=== PATIENT | male | born 1980 | race Caucasian/White ===

== ENCOUNTER 2018-09-01 21:56 | Emergency (ER) | payer SELFPAY ==
[~2018-09-01] VITALS: Ht 172.7 cm; Wt 91.0 kg
[2018-09-01 22:04] VITALS: BP 130/100
== END 2018-09-01 22:54 | disposition left against medical advice (07) ==
LOC: ER 21:56
DX: Z53.21 Procedure and treatment not carried out due to patient leaving prior to being seen by health care provider (principal)

== ENCOUNTER 2024-02-08 21:49 | Emergency (ER) | payer SELFPAY ==
[~2024-02-08] VITALS: Ht 175.3 cm; Wt 70.0 kg
[2024-02-08] MEDS ORDERED: IBUPROFEN 600MG TABLET PO ONE (22:00)
[2024-02-08] MEDS ORDERED: LIDOCAINE 5% PATCH TOP SCH (22:00)
[2024-02-08 22:04] VITALS: BP 155/95; PULSE 120; RESP 16; TEMP 98.2; O2SAT 98
[2024-02-08] MEDS ORDERED: SODIUM CHLORIDE 0.9% 1,000 ML IV NR (22:15)
[2024-02-09] MEDS ORDERED: IBUPROFEN 600MG TABLET PO NR (02:30)
== END 2024-02-09 07:41 | disposition home or self-care (01) ==
LOC: ER 21:49
DX: S20.212A Contusion of left front wall of thorax, initial encounter (principal); R07.89 Other chest pain; I10 Essential (primary) hypertension; F14.10 Cocaine abuse, uncomplicated; F12.10 Cannabis abuse, uncomplicated; X58.XXXA Exposure to other specified factors, initial encounter; Y93.89 Activity, other specified; Y92.89 Other specified places as the place of occurrence of the external cause; Y99.8 Other external cause status
CPT/HCPCS: 71045; 93005; 99283

== ENCOUNTER 2024-02-20 09:46 | Emergency (ER) | payer SELFPAY ==
[~2024-02-20] VITALS: Ht 167.6 cm; Wt 70.0 kg
[2024-02-20 09:49] VITALS: O2SAT 99
[2024-02-20 10:28] VITALS: BP 125/69; PULSE 132; RESP 23; TEMP 37.22520; O2SAT 96
[2024-02-20] MEDS: SODIUM CHLORIDE 0.9% 1,000 ML IV ONE (10:32)
[2024-02-20 10:41] LABS: BASOPHILS % 0.4 % (0.0-2.0); EOSINOPHILS % 1.7 % (0.0-5.0); HEMATOCRIT. 35.1 % (42.0-52.0); HEMOGLOBIN. 11.4 g/dL (14.0-18.0); LYMPHOCYTES % 47.1 % (20.0-50.0); MEAN CORPUSCULAR HEMOGLOBIN 28.7 pg (28.0-32.0); MEAN CORPUSCULAR HGB CONC 32.4 g/dL (31.0-37.0); MEAN CORPUSCULAR VOLUME 88.5 fL (80.0-94.0); MONOCYTES % 8.9 % (2.0-8.0); NEUTROPHILS % 41.9 % (40.0-76.0); PLATELET 238 x1000/uL (130-400); RED BLOOD CELL COUNT 3.96 mill/uL (4.7-6.1); RED CELL DISTRIBUTION WIDTH 13.6 % (11.6-14.6); WHITE BLOOD COUNT 5.8 x1000/uL (4.5-11.0)
[2024-02-20 10:50] LABS: CHLORIDE 110 mEq/L (98-107); POTASSIUM 3.6 mEq/L (3.5-5.1); SODIUM 144 mEq/L (136-145)
[2024-02-20 10:51] LABS: CALCIUM 8.4 mg/dL (8.7-10.4); CARBON DIOXIDE 24 mEq/L (21-32)
[2024-02-20 10:56] LABS: CREATININE 0.3 mg/dL (0.6-1.3); GLUCOSE 103 mg/dL (70-105)
[2024-02-20 10:57] LABS: ETHANOL BLOOD 282 mg/dL (<10)
[2024-02-20 11:10] LABS: UREA NITROGEN BLOOD < 5 mg/dL (9-23)
== END 2024-02-20 11:24 | disposition left against medical advice (07) ==
LOC: ER 09:46
DX: F10.129 Alcohol abuse with intoxication, unspecified (principal); F14.10 Cocaine abuse, uncomplicated; F12.10 Cannabis abuse, uncomplicated; Y90.8 Blood alcohol level of 240 mg/100 ml or more
CPT/HCPCS: 80048; 80320; 85025; 36415; 93005; 99284; J7030; G0480

== ENCOUNTER 2025-01-25 07:34 | Inpatient (IN) | payer MEDICAID ==
[~2025-01-25] VITALS: Ht 167.6 cm; Wt 72.6 kg
[~2025-01-25 07:34] MED LIST: APIX5TAB PO; DIGO-34 PO; FURO-151 PO; METH-371 PO; METO25TA6 PO
[2025-01-25 07:45] VITALS: O2SAT 100
[2025-01-25 08:40] LABS: BASOPHILS % 0.7 % (0.0-2.0); EOSINOPHILS % 1.6 % (0.0-5.0); HEMATOCRIT. 30.0 % (42.0-52.0); HEMOGLOBIN. 9.6 g/dL (14.0-18.0); LYMPHOCYTES % 40.7 % (20.0-50.0); MEAN PLATELET VOLUME 8.8 fl (7.4-10.4); MONOCYTES % 12.5 % (2.0-8.0); NEUTROPHILS % 44.5 % (40.0-76.0); PLATELET 199 x1000/uL (130-400); RED BLOOD CELL COUNT 3.70 mill/uL (4.7-6.1); RED CELL DISTRIBUTION WIDTH 15.0 % (11.6-14.6)
[2025-01-25] MEDS: DILTIAZEM HCL 60MG TABLET PO ONE (08:45)
[2025-01-25] MEDS: DILTIAZEM HCL 5MG/ML 5ML VIAL IV ONE (08:45)
[2025-01-25] MEDS: ENOXAPARIN 80MG/0.8ML SYR SUBCUT ONE (08:46)
[2025-01-25 08:53] LABS: UREA NITROGEN BLOOD 9 mg/dL (9-23)
[2025-01-25 08:55] LABS: ASPARTATE AMINOTRANSFERASE 31 IU/L (<34); BILIRUBIN DIRECT 1.2 mg/dL (<=3.0); BILIRUBIN TOTAL 1.9 mg/dL (0.1-1.0); PROTEIN TOTAL 6.5 g/dL (6.0-8.3); TROPONIN I HIGH SENSITIVITY 18 ng/L (3.0-53)
[2025-01-25 09:09] LABS: CREATININE 0.4 mg/dL (0.6-1.3)
[2025-01-25 11:29] LABS: TROPONIN I HIGH SENSITIVITY 17 ng/L (3.0-53)
[2025-01-25] MEDS: ACETAMINOPHEN 325MG TABLET PO PRN (14:40)
[2025-01-25 14:56] VITALS: BP 129/80; PULSE 104; RESP 16; TEMP 37.0852
[2025-01-25] MEDS ORDERED: ACETAMINOPHEN 325MG TABLET PO PRN (15:00)
[2025-01-25] MEDS ORDERED: ONDANSETRON HCL 4MG/2ML INJ IV PRN (15:00)
[2025-01-25] MEDS: METOPROLOL TARTRATE 25MG TABLET PO SCH (15:58)
[2025-01-25] MEDS: ASPIRIN 81MG TABLET PO SCH (15:58)
[2025-01-25] MEDS: FUROSEMIDE 40MG/4ML VIAL IVP SCH ×2 (15:59→21:04)
[2025-01-25 16:00] VITALS: BP 120/74; PULSE 98; RESP 17; TEMP 36.4; O2SAT 98
[2025-01-25] MEDS: MAGNESIUM 1 G PREMIX 100 ML IV NR (16:58)
[2025-01-25 17:33] LABS: CLARITY URINE CLEAR (CLEAR); COLOR URINE YELLOW (YELLOW); GLUCOSE URINE NEGATIVE (NEGATIVE); KETONES URINE NEGATIVE (NEGATIVE); LEUKOCYTE ESTERASE URINE NEGATIVE (NEGATIVE); NITRITE URINE NEGATIVE (NEGATIVE); OCCULT BLOOD URINE NEGATIVE (NEGATIVE); PH URINE 6.5 (4.5-8.0); PROTEIN URINE NEGATIVE (NEGATIVE); SPECIFIC GRAVITY URINE 1.007 (1.005-1.030); UROBILINOGEN URINE 1.0 E.U./dL (0.2-1.0)
[2025-01-25 17:36] LABS: *AMPHETAMINES SCREEN URINE NEGATIVE (NEGATIVE); *BARBITURATES SCREEN URINE NEGATIVE (NEGATIVE); *BENZODIAZEPINES SCREEN URINE NEGATIVE (NEGATIVE); *COCAINE SCREEN URINE NEGATIVE (NEGATIVE); CANNABINOID URINE SCREEN PRESUMPTIVE POSITIVE (NEGATIVE); ECSTASY MDMA SCREEN URINE NEGATIVE (NEGATIVE); METHADONE URINE SCREEN NEGATIVE (NEGATIVE); OPIATES URINE SCREEN NEGATIVE (NEGATIVE); PHENCYCLIDINE URINE SCREEN NEGATIVE (NEGATIVE)
[2025-01-25 20:00] VITALS: BP 112/78; PULSE 91; RESP 18; TEMP 36.5; O2SAT 99
[2025-01-25 20:32] LABS: TRIGLYCERIDE 56 mg/dL (0-150)
[2025-01-25 20:33] LABS: LDL CHOLESTEROL 65 mg/dL (5-100)
[2025-01-25 20:37] LABS: T4 FREE > 8.00 ng/dL (0.89-1.76)
[2025-01-25 20:40] LABS: INR 1.2
[2025-01-25] MEDS: ATORVASTATIN CALCIUM 40MG TABLET PO SCH (21:04)
[2025-01-25] MEDS: ENOXAPARIN 80MG/0.8ML SYR SUBCUT SCH (23:27)
[2025-01-26] VITALS: BP 119/79; PULSE 85; RESP 18; TEMP 36.4; O2SAT 99
[2025-01-26 04:00] VITALS: BP 108/75; PULSE 86; RESP 18; TEMP 36.5; O2SAT 99
[2025-01-26 07:03] LABS: CREATININE 0.3 mg/dL (0.6-1.3)
[2025-01-26 07:04] LABS: UREA NITROGEN BLOOD 7 mg/dL (9-23)
[2025-01-26 07:09] LABS: BASOPHILS % 0.4 % (0.0-2.0); EOSINOPHILS % 0.9 % (0.0-5.0); HEMATOCRIT. 30.6 % (42.0-52.0); HEMOGLOBIN. 10.0 g/dL (14.0-18.0); LYMPHOCYTES % 42.9 % (20.0-50.0); MEAN PLATELET VOLUME 9.1 fl (7.4-10.4); MONOCYTES % 13.5 % (2.0-8.0); NEUTROPHILS % 42.3 % (40.0-76.0); PLATELET 193 x1000/uL (130-400); RED BLOOD CELL COUNT 3.77 mill/uL (4.7-6.1); RED CELL DISTRIBUTION WIDTH 15.0 % (11.6-14.6)
[2025-01-26 08:00] VITALS: BP 127/75; PULSE 101; RESP 15; TEMP 36.9; O2SAT 96
[2025-01-26] MEDS: PANTOPRAZOLE SODIUM 40 MG/VIAL IV SCH (08:54)
[2025-01-26 12:00] VITALS: BP 138/63; PULSE 74; RESP 18; TEMP 36.5; O2SAT 100
[2025-01-26] MEDS ORDERED: APIX5TAB PO (12:57)
[2025-01-26 16:00] VITALS: BP 115/72; PULSE 96; RESP 16; TEMP 36.6; O2SAT 96
[2025-01-26] MEDS: FUROSEMIDE 40MG/4ML VIAL IVP SCH (16:28)
[2025-01-26 20:00] VITALS: BP 129/60; PULSE 86; RESP 20; TEMP 36.3; O2SAT 98
[2025-01-27] VITALS: BP 101/68; PULSE 98; RESP 19; TEMP 36.7; O2SAT 97
[2025-01-27] MEDS: DILTIAZEM HCL 5MG/ML 5ML VIAL IV NR (03:10)
[2025-01-27] MEDS: DIGOXIN 500MCG/2ML AMP IV NR (03:23)
[2025-01-27 04:00] VITALS: BP 103/56; PULSE 76; RESP 20; TEMP 36.3; O2SAT 97
[2025-01-27 08:00] VITALS: BP 115/70; PULSE 93; RESP 20; TEMP 36.6; O2SAT 98
[2025-01-27] MEDS: METHIMAZOLE 5MG TABLET PO SCH (10:37)
[2025-01-27 12:00] VITALS: BP 107/63; PULSE 63; RESP 20; TEMP 35.9; O2SAT 98
[2025-01-27] MEDS ORDERED: METH-371 PO (12:08)
[2025-01-27] MEDS ORDERED: METO25TA6 PO (12:08)
[2025-01-27] MEDS ORDERED: LOSA25TA26 MT (12:08)
[2025-01-27] MEDS ORDERED: EMPA10TA MT (12:08)
[2025-01-27] MEDS ORDERED: SPIR25TA6 MT (12:08)
[2025-01-27] MEDS ORDERED: FURO-151 PO (12:08)
[2025-01-27] MEDS ORDERED: DIGO-34 PO (12:08)
== END 2025-01-27 14:30 | disposition left against medical advice (07) | DRG 201 ==
LOC: ER 07:34 → CANBEDREQ 10:36 → 6WST 10:54 → ENRESERV 13:05
PROVIDERS: ADMIT Internal Medicine; ATTEND Internal Medicine
DX: I48.91 Unspecified atrial fibrillation (principal); I50.23 Acute on chronic systolic (congestive) heart failure; E11.9 Type 2 diabetes mellitus without complications; E80.6 Other disorders of bilirubin metabolism; R74.01 Elevation of levels of liver transaminase levels; F19.90 Other psychoactive substance use, unspecified, uncomplicated; Z91.148 Patient's other noncompliance with medication regimen for other reason; Z53.29 Procedure and treatment not carried out because of patient's decision for other reasons
CPT/HCPCS: 36415; 71045; 80048; 80061; 80076; 80305; 81003; 83036; 84439; 84443; 84484; 85025; 93005; 99285; J1160; J1650; J1938; J2470; J3475; J3490